=== PATIENT | female | born 1945 | race Caucasian/White ===

== ENCOUNTER 2021-03-07 10:59 | Outpatient (CLI) | payer MEDICARE | END 2021-03-07 11:00 | disposition home or self-care (01) | LOC: CSHMAMMO 10:59 | PROVIDERS: ATTEND Internal Medicine | DX: Z53.9 Procedure and treatment not carried out, unspecified reason (principal) ==

== ENCOUNTER 2021-10-04 10:22 | Outpatient (CLI) | payer MEDICARE | END 2021-10-04 10:23 | disposition home or self-care (01) | LOC: CSHMAMMO 10:22 | PROVIDERS: ATTEND Internal Medicine | DX: N63.21 Unspecified lump in the left breast, upper outer quadrant (principal) | CPT/HCPCS: 76642; 77066; G0279 ==

== ENCOUNTER 2022-04-30 10:14 | Outpatient (CLI) | payer MEDICARE | END 2022-04-30 10:15 | disposition home or self-care (01) | LOC: CSHMAMMO 10:14 | PROVIDERS: ATTEND Internal Medicine | DX: Z13.820 Encounter for screening for osteoporosis (principal); Z78.0 Asymptomatic menopausal state; M81.0 Age-related osteoporosis without current pathological fracture; M85.851 Other specified disorders of bone density and structure, right thigh; M85.852 Other specified disorders of bone density and structure, left thigh | CPT/HCPCS: 77080 ==

== ENCOUNTER 2022-06-05 13:31 | Outpatient (CLI) | payer MEDICARE | END 2022-06-05 13:32 | disposition home or self-care (01) | LOC: CSHRAD 13:31 | PROVIDERS: ATTEND Internal Medicine Rheumatology | DX: R06.02 Shortness of breath (principal) | CPT/HCPCS: 71046 ==

== ENCOUNTER 2022-06-07 11:21 | Outpatient (CLI) | payer MEDICARE | END 2022-06-07 11:22 | disposition home or self-care (01) | LOC: CSHRAD 11:21 | PROVIDERS: ATTEND Internal Medicine Rheumatology | DX: M25.542 Pain in joints of left hand (principal); M19.042 Primary osteoarthritis, left hand ==

== ENCOUNTER 2022-10-09 09:17 | Outpatient (CLI) | payer MEDICARE | END 2022-10-09 09:18 | disposition home or self-care (01) | LOC: CSHULT 09:17 | PROVIDERS: ATTEND Internal Medicine | DX: R92.8 Other abnormal and inconclusive findings on diagnostic imaging of breast (principal) | CPT/HCPCS: 76642; 77066; G0279 ==

== ENCOUNTER 2024-05-01 10:29 | Outpatient (CLI) | payer MEDICARE | END 2024-05-01 10:30 | disposition home or self-care (01) | LOC: CSHMAMMO 10:29 | PROVIDERS: ATTEND Internal Medicine Rheumatology | DX: M81.0 Age-related osteoporosis without current pathological fracture (principal); M85.851 Other specified disorders of bone density and structure, right thigh; M85.852 Other specified disorders of bone density and structure, left thigh | CPT/HCPCS: 77080 ==

== ENCOUNTER 2025-02-12 14:37 | Emergency (ER) | payer MEDICARE ==
[2025-02-12 15:34] LABS: #Basophils 0.03 10x3/uL (0.0-0.2); #Eosinophils 0.14 10x3/uL (0.0-0.5); #Monocytes 0.79 10x3/uL (0.0-1.1); #Neutrophils 4.79 10x3/uL (1.5-8.4); %Basophils 0.4 % (0.0-2.0); %Eosinophils 1.9 % (0.0-6.0); %Lymphocytes 21.7 % (18.0-47.0); %Monocytes 10.7 % (0.0-10.0); %Neutrophils 65.0 % (40.0-75.0); Hematocrit 26.9 % (34.9-44.5); Hemoglobin 9.1 g/dL (12.0-15.5); Mean Corpuscular Hemoglobin 31.4 pg (27.0-33.0); Mean Corpuscular Volume 92.8 fL (81.6-98.3); Platelet Count 156 10x3/uL (150-450); Red Blood Cell (RBC) Count 2.90 10x6/uL (3.90-5.03); White Blood Cell (WBC) Count 7.37 10x3/uL (3.5-10.5)
[2025-02-12 16:10] LABS: INR-International Normal Ratio 1.0; PTT 27.1 sec (22.0-33.0); Prothrombin Time 10.9 sec (9.5-12.1)
[2025-02-12 16:16] LABS: ALT (SGPT) 19 U/L (Less than 34); AST (SGOT) 31 U/L (11-34); Albumin 4.0 g/dL (3.1-4.5); Alkaline Phosphatase 67 U/L (40-110); Anion Gap 16 mmol/L (10-20); BUN (Urea Nitrogen) 41 mg/dL (9.8-20.1); Bilirubin, Total 0.3 mg/dL (0.3-1.2); Calc. Creatinine Clearance 0 mL/min (70-130); Calcium 9.9 mg/dL (7.8-10.44); Carbon Dioxide 19 mmol/L (23-31); Chloride 108 mmol/L (98-107); Globulin 3.3 g/dL (2.4-3.5); Glucose 67 mg/dL (83-110); Potassium 4.3 mmol/L (3.5-5.1); Sodium 139 mmol/L (136-145)
== END 2025-02-12 20:09 | disposition short-term general hospital (02) ==
LOC: CSHERS 14:37
DX: N17.9 Acute kidney failure, unspecified (principal); D64.9 Anemia, unspecified; I10 Essential (primary) hypertension
CPT/HCPCS: 36415; 80053; 85025; 85610; 85730; 93005